=== PATIENT | female | born 1995 | race African-American/Black ===

== ENCOUNTER 2018-06-16 18:56 | Emergency (ER) | payer OTHER ==
[~2018-06-16 18:56] MED LIST: Iopamidol 370 76% 100 ML VIAL ONE
[2018-06-16 19:39] LABS: Bilirubin Negative (Negative); Blood, Urine Negative (Negative); Clarity CLEAR (Clear); Glucose, Urine (Dipstick) Negative (Negative); Leukocyte Negative (Negative); Nitrite Negative (Negative); Protein, Urine (Dipstick) Negative (Neg-Trace); Specific Gravity, Urine 1.009 (1.002-1.036); Urobilinogen 0.2 mg/dL (0.2-1.0)
[2018-06-16 19:41] LABS: Pregnancy Test - Urine (BHCG) Negative (Negative); Pregu Control Background? CLEAR/WHITE (CLR/WHITE); Pregu Control Bar Appear? YES (CONTROL BAR); Specific Gravity 1.009 (1.002-1.036)
[2018-06-16 20:12] LABS: #Eosinphils 0.1 thou/uL (0.0-0.7); #Lymphocytes 0.8 thou/uL (1.20-3.40); #Monocytes 0.4 thou/uL (0.11-0.59); #Neutrophils 4.4 thou/uL (1.40-6.50); %Eosinophils 2.3 % (0.0-10.0); %Lymphocytes 14.3 % (21.0-51.0); %Monocytes 6.6 % (0.0-10.0); %Neutrophils 76.8 % (42.0-75.0); Hemoglobin 13.1 g/dL (12.0-16.0); Mean Corpuscular HGB CONC 33.3 g/dL (32.0-36.0); Mean Platelet Volume 8.9 fL (7.4-10.4); Platelet Count 163 thou/uL (130-400); RBC Distribution Width 11.8 % (11.5-14.5); Red Blood Cell (RBC) Count 4.68 mill/uL (4.20-5.40); White Blood Cell (WBC) Count 5.7 thou/uL (4.8-10.8)
[2018-06-16] MEDS ORDERED: Ondansetron ODT 4 MG TAB ONE (20:15)
[2018-06-16] MEDS ORDERED: Morphine 2 MG/ML SYRINGE ONE (20:15)
[2018-06-16 20:39] LABS: BHCG - Serum Negative (NEGATIVE); Pregs Control Background? CLEAR/WHITE (CLR/WHITE); Pregs Control Bar Appear? YES (CONTROL BAR)
[2018-06-16 20:47] LABS: ALT (SGPT) 53 U/L (8-55); AST (SGOT) 34 U/L (5-34); Albumin 4.3 g/dL (3.5-5.0); Alkaline Phosphatase 66 U/L (40-150); Anion Gap 10 mmol/L (10-20); BUN (Urea Nitrogen) 8 mg/dL (7.0-18.7); Bilirubin, Total 0.5 mg/dL (0.2-1.2); Calc. Creatinine Clearance 0 mL/min (70-130); Calcium 9.6 mg/dL (7.8-10.44); Carbon Dioxide 24 mmol/L (22-29); Chloride 105 mmol/L (98-107); Estimated GFR-MDRD 84; Globulin 3.3 g/dL (2.4-3.5); Glucose 92 mg/dL (70-105); Lipase 21 U/L (8-78); Potassium 3.8 mmol/L (3.5-5.1); Protein, Total 7.6 g/dL (6.0-8.3); Sodium 135 mmol/L (136-145)
--- NOTE | 2018-06-16 22:34 | CT ---
CT OF ABDOMEN AND PELVIS PERFORMED WITH CONTRAST ENHANCEMENT: 06/16/18 HISTORY: Right lower quadrant pain. The lung bases are clear. The liver, spleen, pancreas, and gallbladder regions appear unremarkable. Right and left adrenal glands and right and left kidneys are normal in size. There is no significant periaortic or mesenteric adenopathy. CT OF PELVIS PERFORMED WITH CONTRAST ENHANCEMENT: The appendix is normal. There is an IUD present. The IUD appears to be more in the lower uterine segm ent. Somewhat difficult to assess due to the position of the uterus. Follicles are seen involving the adnexa. No free fluid. Small fat containing paraumbilical hernia is incidentally noted. IMPRESSION: No acute findings of the abdomen or pelvis. No CT evidence for appendicitis. POS: [facility]
--- NOTE | 2018-06-16 22:39 | ULT ---
PELVIC ULTRASOUND: 06/16/18 HISTORY: Right sided pelvic pain. Real time imaging of the pelvis was obtained both transabdominally as well as with an endovaginal pro be. Uterus measures 4.4 x 5 x 9.6 cm. Endometrium is 3 mm. An IUD is present. It is in the more lower uterine segment. Small Nabothian cysts are incidentally seen. The right ovary shows some small follicles. The left ovary is never visualized. DOPPLER EVALUATION WITH SPECTRAL ANALYSIS: Normal flow is shown to the right ovary. IMPRESSION: 1. IUD which is in the lower uterine segment. 2. Nonvisualization of the left ovary. POS: [facility]
[2018-06-19 14:04] LABS: Chlamydia by PCR Not Detected (NotDetected); GC by PCR Not Detected (NotDetected)
== END 2018-06-16 22:53 | disposition home or self-care (01) ==
LOC: ERS 18:56
DX: N76.0 Acute vaginitis (principal)
CPT/HCPCS: 74177; 76856; 80053; 81003; 81025; 83690; 84703; 85025; 87086; 87480; 87491; 87510; 87591; 87660; 96374; J2270; Q0162